=== PATIENT | female | born 1955 | race Hispanic/Latino ===

== ENCOUNTER 2019-11-09 12:31 | Outpatient (CLI) | payer MEDICARE ==
--- NOTE | 2019-11-09 14:27 | MRI ---
BRAIN MRI WITH AND WITHOUT CONTRAST: HISTORY: Benign neoplasm of the brain, unspecified. COMPARISON: None. FINDINGS: Hemorrhage: No parenchymal hemorrhage. No extraaxial hematoma. Calvarium: Appropriate T1 marrow signal intensity. Midline brain parenchyma: Unremarkable. Cerebrum:No parenchymal mass, mass effect or midline shift. Age-appropriate brain volume loss. Cortic al mendoza-white matter differentiation is preserved. There are T2 and FLAIR white matter hyperintensities which are nonspecific but are felt to be due to chronic small vessel ischemic change s. Ventricles: No evidence of hydrocephalus. Sinuses and mastoid air cells: Suggestion of previous sinonasal surgery. Mild mucosal thickening invo lving bilateral maxillary sinuses. Mild mucosal thickening of the ethmoid air cells. There appear to be complex secretions as well as a complex retention cyst in the left sphenoid sinus. Adequate mas toid air cell aeration. Diffusion: Central arterial flow is maintained. Absent restricted diffusion. Skull base: There is abnormal T1 marrow signal intensity of the clivus. The majority the clivus appea rs to be replaced with T1 marrow signal hypointensity. This associated T2 and STIR hyperintensity. Postcontrast images demonstrate heterogeneous enhancement. There is abnormal enhancement extending in to both cavernous sinuses. Arterial flow voids appear to be maintained with regards to both cavernous carotid arteries. Normal-appearing pituitary gland is difficult to appreciate. Sella is mid line. No mass effect upon the optic chiasm or prechiasmatic optic nerves. Abnormal enhancement involves the left V3 segment of the cranial nerve, through the foramen ovale. Possible similar findin g on the contralateral side. Postcontrast Images: No pathologic enhancement of the brain parenchyma. IMPRESSION: 1. Extensive postoperative changes which may be due to a transsphenoidal approach. However, the overa ll abnormal signal intensity involving the majority the clivus is atypical for transsphenoidal approach. The possibility of a lesion based within the clivus cannot be excluded. Chondrosarcoma, cho rdoma or other lesion centered in the clivus are differential considerations. 2. Abnormal soft tissue signal noted in both cavernous sinuses, right greater than left. Questionable perineural enhancement along the left 5th cranial nerve 3. No obvious mass associated with the pituitary gland. 4. Additional postoperative changes with resection of nasal structures. There is mucosal thickening a nd a complex fluid collection in the posterior right paranasal sinuses. 5. Overall evaluation is markedly hindered due to the absence of comparison imaging. A repeat attempt at obtaining the patient's prior imaging would be beneficial to better allow for characterization of the current findings. If prior imaging cannot be obtained, consider a skull base CT to evaluate th e clivus. Possible workup for chondrosarcoma or chordoma may be beneficial if prior imaging cannot be obtained. CODE T Transcribed Date/Time: 11/09/2019 2:38 PM
[2019-11-09] MEDS ORDERED: Magnevist 469MG/ML 20 ML VIAL ONE (15:45)
== END 2019-11-09 12:32 | disposition home or self-care (01) ==
LOC: MRI 12:31
PROVIDERS: ATTEND Family Medicine
DX: D33.2 Benign neoplasm of brain, unspecified (principal)
CPT/HCPCS: 70553; 82565; A9579